=== PATIENT | female | born 1960 | race Caucasian/White ===

== ENCOUNTER 2019-09-04 15:24 | Outpatient (CLI) | payer BC ==
[~2019-09-04 15:24] MED LIST: ASPI-1265 PO; CLIN40GE TP; CLIN60GE TP; EPIN0.3A2 SQ; FEXO180T PO; FING0.5C3 PO; HYDR-2514 PO; IBUP-1984 PO; LOVA40TA76 PO; NOR5T PO; OMEG1CAP46 PO; OMEP40CA13 PO; PRO100T PO; RANI300C7 PO; TRET60CR TP
== END 2019-09-04 23:59 | disposition home or self-care (01) ==
LOC: RAD 15:24
PROVIDERS: ATTEND Family Medicine
DX: K57.92 Diverticulitis of intestine, part unspecified, without perforation or abscess without bleeding (principal); M47.816 Spondylosis without myelopathy or radiculopathy, lumbar region; I87.8 Other specified disorders of veins; I70.8 Atherosclerosis of other arteries
CPT/HCPCS: 74021